=== PATIENT | male | born 1990 | race Caucasian/White ===

== ENCOUNTER 2021-01-01 19:10 | Emergency (ER) | payer MEDICAID ==
[~2021-01-01] VITALS: Ht 175.3 cm; Wt 75.0 kg
--- NOTE | 2021-01-01 20:16 | NUR ---
PT C/O OF SI AND DENIES HI. PT REPORTS PLAN OF HURTING HIMSELD BY PLANS OF JUMPING OUT OF A WINDOW. STATES HE HAS HAD NO INTENTION OF CARRYING OUT WITH THIS PLAN AND THAT THEY ARE JUST THOUGHTS. STATES HE IS HEARING VOICES "TALKING SHIT TO ME" REPORTS BEING VERY DEPRESSED ABOUT REHAB AND ABOUT 2 KIDS HE HAS. PT STATES PAST SUICIDE ATTEMPT WAS 20 YEARS AGO OF SLITTING HIS WRIST. HX OF CIRRHOSIS, BIPOLAR, SCHIZ, AND DEPRESSION. PT IS FROM [place] AND HAS BEEN IS [facility] FOR PAST 5 DAYS AT [facility]. REPORTS REHAB OF 7 DAYS WITHOUT DRINKING, DOING METH, AND SMOKING MARIJUANA PT VITALS ALL STABLE, SITTER AT BEDSIDE. BELONGINGS LOCKED IN LOCKERS AND FPORM COMPLETED SIGNED BY PT. SAFETY GARAGE DOORS CLOSED. BED IN LOW POSITION. RAILS ENGAGED. CALL LIGHT ON LAP. [facility]
[2021-01-01 20:48] LABS: AMPHETAMINE SCREEN, URINE Negative (Negative); BARBITURATE SCREEN, URINE Negative (Negative); BENZODIAZEPINE SCREEN, URINE Positive (Negative); CANNABINOID SCREEN, URINE Positive (Negative); COCAINE SCREEN, URINE Negative (Negative); METHADONE SCREEN, URINE Negative (Negative); OPIATE SCREEN, URINE Negative (Negative)
[2021-01-01 20:51] LABS: BASOPHILS % (AUTO) 1 % (0-1); EOSINOPHILS % (AUTO) 6 % (1-7); LYMPHOCYTES % (AUTO) 20 % (22-44); MEAN CORPUSCULAR HEMOGLOBIN 32.3 pg (27.5-34.5); MEAN CORPUSCULAR HGB CONC 34.3 g/dL (33.2-36.2); MEAN PLATELET VOLUME 8.7 fL (7.4-10.4); MONOCYTES % (AUTO) 5 % (2-9); NEUTROPHILS % (AUTO) 68 % (42-75); PLATELET COUNT 218 x10^3/uL (130-400); RED BLOOD COUNT 4.04 x10^6/uL (4.38-5.82); RED CELL DISTRIBUTION WIDTH 17.4 % (9.4-14.8)
[2021-01-01 21:00] LABS: ALANINE AMINOTRANSFERASE 34 U/L (12-78); ALBUMIN 3.9 g/dL (3.4-5.0); ANION GAP 5 mmol/L (5-15); CALCIUM 9.1 mg/dL (8.5-10.1); CHLORIDE 108 mmol/L (98-107)
[2021-01-01 21:02] LABS: ALKALINE PHOSPHATASE 128 U/L (45-117); BILIRUBIN,TOTAL 0.3 mg/dL (0.2-1.0); TOTAL PROTEIN 7.8 g/dL (6.4-8.2)
--- NOTE | 2021-01-01 21:04 | NUR ---
PT VOMITTED IN ENMESIS BAG AND BLANKETS. GIVEN NEW BLANKETS. PT FEELING BETTER NOW. NO ADDITIONAL NEEDS AT THIS TIME.
[2021-01-01 21:17] LABS: SALICYLATE LEVEL < 1.7 mg/dL (2.8-20.0)
--- NOTE | 2021-01-01 21:43 | NUR ---
PT SLEEPING IN BED. NADN. NO MORE VOMITTING. BREATHING EVEN AND UNLABORED. SITTER AT BEDSIDE FOR SFAETY MONITORING. BED IN LOW POSITION. RAILS ENGAGED. CALL LIGHT ON LAP. WCTM.
--- NOTE | 2021-01-01 22:14 | NUR ---
CHEPE RIBEIRO DROPPED PT OFF. CALL WHEN RELEASED TO BE PICKED UP. [phone] [facility], ASK FOR CHEPE
--- NOTE | 2021-01-01 22:38 | NUR ---
PT SLEEPING IN BED COMFORTABLY. NADN. BREATHING EVEN AND UNLABORED. SITTER AT BEDSIDE FOR SAFETY MONITORING. BED IN LOW POSITION. RAILS ENGAGED. CALL LIGHT ON LAP. WCTM.
--- NOTE | 2021-01-01 23:48 | NUR ---
PT GIVEN WATER. REFUSED FOOD WHEN OFFERED TO PT. PT RESTING IN BED. BREATHING EVEN AND UNLABORED. NADN. RAILS ENGAGED. BED IN LOW POSITION. SAFETY GARAGE DOORS SECURED. SITTER OUTSIDE ROOM FOR SAFETY MONITORING. CALL LIGHT ON LAP. NO ADDITIONAL NEEDS OR QUESTIONS AT THIS TIME. TM
[2021-01-02] MEDS ORDERED: ONDANSETRON ODT 4 MG ONE (00:12)
--- NOTE | 2021-01-02 00:20 | NUR ---
THROUGHPUT: DENIED BY [facility] D/T INS PER KATHYA; PACKET FAXED TO [facility].
[2021-01-02] MEDS ORDERED: ONDANSETRON ODT 4 MG PO ONE (00:30)
--- NOTE | 2021-01-02 01:16 | NUR ---
BREAK RN: PT RESTING COMFORTABLY IN [facility], [facility], NO CHANGE IN CONDITION, LIGHTS OFF FOR COMFORT, ROOM SECURED, SITTER IN LINE OF SIGHT. WCTM
--- NOTE | 2021-01-02 01:42 | NUR ---
PT A POOR HISTORIAN FOR DAILY MEDICATIONS. STATES HE TAKES ONE MED FOR PSYCH/DEPRESSION BUT DOES NOT KNOW WHAT IT IS.
--- NOTE | 2021-01-02 02:23 | NUR ---
Patient is resting comfortably in bed. Bed in lowest, rails engaged, call light on lap. Vital Signs within normal limits. WCTM. SIITER OUTSIDE ROOM FOR MONITORS. BREATHING EVEN AND UNLABORED. NADN. GARAGE DOORS SECURED.
--- NOTE | 2021-01-02 03:00 | NUR ---
PT GIVEN HOSPITAL BED FOR INCREASED COMFORTABILITY. PT RESTING IN BED WATCHING TV. SITTER OUTSIDE ROOM FOR SAFETY MONITORING. BREATHING EVEN AND UNLABORED. NADN. BED IN LOW POSITION. RAILS ENGAGED. CALL LIGHT ON LAP. GARAGE DOORS SECURED. WCTM.
--- NOTE | 2021-01-02 04:12 | NUR ---
NO CHANGE IN CONDITION. PT SLEEPING IN BED. EYES CLOSED. SITTER IN LINE OF SIGHT. ROOM SECURE.
--- NOTE | 2021-01-02 05:31 | NUR ---
PT SLEEPING IN BED. EYES CLOSED. NO CONDITION CHANGE. BREATHING EVEN AND UNLABORED. NADN. SITTER IN LINE OF SIGHT FOR SAFETY MONITORING. GARAGE DOORS SECURED. BED IN LOW POSIITON. RAILS ENGAGED. CALL LIGHT ON LAP. [facility].
--- NOTE | 2021-01-02 06:57 | NUR ---
REPORT FROM MIRLANDE WILLIS, ASSUME CARE OF PT AT THIS TIME.
--- NOTE | 2021-01-02 07:37 | NUR ---
PT AWAKE NOW, AMBULATORY TO BR. COOPERATIVE WITH CARE, SITTER AT DOORWAY.
--- NOTE | 2021-01-02 08:45 | NUR ---
MEAL TRAY PROVIDED. PT DENIES SI, AH, VH AT THIS TIME. WHEN ASKED IF PT WOULD LIKE TO GO BACK TO [facility], PT STATES "I WANT TO CHECK OUT THE OTHER PLACE[facility]". PT COOPERATIVE WITH CARE. VS RECHECKED/UPDATED IN COMPUTER. PHYSICAL REASSESSMENT COMPLETE.
[2021-01-02 08:48] VITALS: BP 116/71
--- NOTE | 2021-01-02 09:53 | NUR ---
PT UP TO BR, REQUESTING INFORMATION ABOUT POC. ALL QUESTIONS ANSWERED. SITTER AT DOORWAY.
--- NOTE | 2021-01-02 10:37 | NUR ---
CELESTE IN TO SEE PTGonzalo
[2021-01-02] MEDS ORDERED: OLANZAPINE 10 MG TABLET PO SCH (11:00)
[2021-01-02] MEDS ORDERED: HYDROXYZINE PAMOATE 50MG CAP PO PRN (11:00)
[2021-01-02] MEDS ORDERED: TRAZODONE 50MG TABLET PO PRN (11:00)
--- NOTE | 2021-01-02 11:04 | NUR ---
THROUGHPUT: PT HAS MEDICAID INSURANCE PER KEYANA MESSER, FAXED REFERAL TO [facility].
--- NOTE | 2021-01-02 11:30 | NUR ---
RAPID COVID SWAB COMPLETED, WALKED TO LAB.
[2021-01-02] MEDS ORDERED: hydrOXyzine 50MG TABLET ONE (11:45)
[2021-01-02] MEDS ORDERED: OLANZAPINE 10 MG TABLET ONE (11:45)
--- NOTE | 2021-01-02 11:49 | NUR ---
PT MEDICATED PER EMAR. SITTER AT DOORWAY.
--- NOTE | 2021-01-02 12:02 | NUR ---
ED DIET TRAY PROVIDED.
--- NOTE | 2021-01-02 12:06 | NUR ---
CALL TO LAB TO INQUIRE ON DELAY OF RESULT OF COVID. LAB DELAY, ESTIMATED TIME FOR RESULT 45 MINUTES.
--- NOTE | 2021-01-02 13:01 | NUR ---
THROUGHPUT RN NOTIFIED OF NEG COVID TEST.
--- NOTE | 2021-01-02 13:59 | NUR ---
AWAITING BHU AVAILABILITY. PT CALM, COOPERATIVE WITH CARE. UP NEEDED TO BR, SLEEPING INTERMITTENTLY. SITTER AT DOORWAY.
--- NOTE | 2021-01-02 15:30 | NUR ---
REPORT TO LAZARO GUEVARA
[2021-01-02] MEDS ORDERED: TRIH5TAB16 PO (18:50)
[2021-01-02] MEDS ORDERED: CITA20TA6 PO (18:50)
[2021-01-02] MEDS ORDERED: LOXA25CA PO (18:50)
[2021-01-02] MEDS ORDERED: GABA600T7 PO (18:50)
[2021-01-02] MEDS ORDERED: QUET300T PO (18:50)
[2021-01-02] MEDS ORDERED: TOPI100T24 PO (18:50)
== END 2021-01-02 15:47 ==
LOC: ED 23:51 → EDIP 23:56 → UNDOADMIN 23:56 → ED 01-02 15:47
DX: R45.851 Suicidal ideations (principal); F48.2 Pseudobulbar affect; R94.31 Abnormal electrocardiogram [ECG] [EKG]; Z20.822 Contact with and (suspected) exposure to COVID-19
CPT/HCPCS: 36415; 80053; 80299; 80307; 80320; 85025; 87426; 93005; 99285; Q0162; 80329; G0480

== ENCOUNTER 2021-01-02 13:53 | Inpatient (IN) | payer MEDICAID ==
[~2021-01-02] VITALS: Ht 175.3 cm; Wt 64.9 kg
[2021-01-02] MEDS ORDERED: ONDANSETRON ODT 4 MG PO PRN (16:00)
[2021-01-02] MEDS ORDERED: POLYETHYLENE GLYCOL 17 GM PACKET PO PRN (16:00)
[2021-01-02] MEDS ORDERED: DOCUSATE 100 MG CAPSULE PO PRN (16:00)
[2021-01-02] MEDS ORDERED: PLEASE ENTER HEIGHT AND WEIGHT MC SCH (16:30)
[2021-01-02 17:00] VITALS: BP 106/67
[2021-01-02] MEDS: NICOTINE 14MG/24 HR PATCH.TD24 TD PRN (18:20)
[2021-01-02] MEDS ORDERED: CITA20TA6 PO (18:50)
[2021-01-02] MEDS ORDERED: TRIH5TAB16 PO (18:50)
[2021-01-02] MEDS ORDERED: TOPI100T24 PO (18:50)
[2021-01-02] MEDS ORDERED: GABA600T7 PO (18:50)
[2021-01-02] MEDS ORDERED: LOXA25CA PO (18:50)
[2021-01-02] MEDS ORDERED: QUET300T PO (18:50)
[2021-01-02 18:52] LABS: MICROSCOPIC NOT IND
[2021-01-02 19:56] VITALS: BP 107/69
[2021-01-02] MEDS: TRAZODONE 50MG TABLET PO PRN (20:14)
[2021-01-03 06:28] LABS: CHOL/HDL RATIO 2.5; LDL/HDL RATIO 1.4 (0.5-3.0)
[2021-01-03 07:40] VITALS: BP 102/69
[2021-01-03] MEDS: OLANZAPINE 10 MG TABLET PO SCH (08:51)
[2021-01-03] MEDS: CITALOPRAM 20 MG TABLET PO SCH (13:51)
[2021-01-03] MEDS: GABAPENTIN 300 MG CAPSULE PO SCH ×2 (16:28→20:36)
[2021-01-03 19:31] VITALS: BP 116/70
[2021-01-03] MEDS: QUETIAPINE 25MG TABLET PO SCH (20:36)
[2021-01-03] MEDS: NICOTINE 14MG/24 HR PATCH.TD24 TD PRN (20:37)
[2021-01-04 07:27] VITALS: BP 103/70
[2021-01-04] MEDS: OLANZAPINE 10 MG TABLET PO SCH (09:02)
[2021-01-04] MEDS: GABAPENTIN 300 MG CAPSULE PO SCH ×3 (09:02→20:19)
[2021-01-04] MEDS: CITALOPRAM 20 MG TABLET PO SCH (09:02)
[2021-01-04] MEDS: TRAZODONE 50MG TABLET PO PRN (20:19)
[2021-01-04] MEDS: QUETIAPINE 25MG TABLET PO SCH (20:19)
[2021-01-04 20:31] VITALS: BP 112/72
[2021-01-05 07:49] VITALS: BP 105/64
[2021-01-05] MEDS: CITALOPRAM 20 MG TABLET PO SCH (08:22)
[2021-01-05] MEDS: OLANZAPINE 10 MG TABLET PO SCH (08:22)
[2021-01-05] MEDS: GABAPENTIN 300 MG CAPSULE PO SCH ×3 (08:22→20:38)
[2021-01-05] MEDS: NICOTINE 14MG/24 HR PATCH.TD24 TD PRN (10:41)
[2021-01-05] MEDS ORDERED: COVID-19 VAC,AD26(JANSSEN)/PF 0.5ML IM-VACC ONE (14:30)
[2021-01-05 19:25] VITALS: BP 109/68
[2021-01-05] MEDS: DOXEPIN 25 MG CAPSULE PO SCH (20:38)
[2021-01-05] MEDS: QUETIAPINE 25MG TABLET PO SCH (20:38)
[2021-01-06] MEDS: OLANZAPINE 10 MG TABLET PO SCH (07:30)
[2021-01-06] MEDS: GABAPENTIN 300 MG CAPSULE PO SCH ×3 (07:30→20:44)
[2021-01-06] MEDS: NICOTINE 14MG/24 HR PATCH.TD24 TD PRN (07:30)
[2021-01-06] MEDS: CITALOPRAM 20 MG TABLET PO SCH (07:30)
[2021-01-06 07:52] VITALS: BP 110/70
[2021-01-06] MEDS: ACETAMINOPHEN 325 MG TABLET PO PRN (14:11)
[2021-01-06 19:49] VITALS: BP 107/60
[2021-01-06] MEDS: DOXEPIN 25 MG CAPSULE PO SCH (20:45)
[2021-01-06] MEDS: QUETIAPINE 25MG TABLET PO SCH (20:45)
[2021-01-07 07:17] VITALS: BP 109/70
[2021-01-07] MEDS: ACETAMINOPHEN 325 MG TABLET PO PRN (07:50)
[2021-01-07] MEDS: CITALOPRAM 20 MG TABLET PO SCH (08:39)
[2021-01-07] MEDS: GABAPENTIN 300 MG CAPSULE PO SCH (08:39)
[2021-01-07] MEDS: OLANZAPINE 10 MG TABLET PO SCH (08:39)
[2021-01-07] MEDS: NICOTINE 14MG/24 HR PATCH.TD24 TD PRN (12:13)
[2021-01-07] MEDS ORDERED: OLAN10TA9 PO (13:54)
[2021-01-07] MEDS ORDERED: DOXE25CA PO (13:54)
[2021-01-07] MEDS ORDERED: NICO-486 TD (13:54)
[2021-01-07] MEDS ORDERED: QUET25TA7 PO (13:54)
== END 2021-01-07 14:49 | disposition home or self-care (01) | DRG 885 ==
LOC: 3E 15:33
PROVIDERS: ADMIT Psychiatry & Neurology Psychosomatic Medicine; ATTEND Psychiatry & Neurology Psychosomatic Medicine
DX: F25.0 Schizoaffective disorder, bipolar type (principal); F11.20 Opioid dependence, uncomplicated; F15.21 Other stimulant dependence, in remission; F10.21 Alcohol dependence, in remission; F17.210 Nicotine dependence, cigarettes, uncomplicated; F41.9 Anxiety disorder, unspecified; G47.00 Insomnia, unspecified; G89.29 Other chronic pain; F12.10 Cannabis abuse, uncomplicated; Z23 Encounter for immunization
CPT/HCPCS: 36415; 71045; 80053; 80061; 80299; 80307; 80320; 80329; 81003; 85025; 87426; 91303; 93005; 99285; Q0162; G0480